=== PATIENT | male | born 1995 | race Caucasian/White ===

== ENCOUNTER → 2016-10-04 | Outpatient (CLI) | payer OTHER ==
--- NOTE | 2016-10-04 15:11 | REP ---
TRIPLE PHASE BONE SCAN OF THE ANKLES AND FEET. Following the intravenous administration of 21.9 millicuries technetium 99m MDP, the patient's ankles and feet are imaged in the flow phase in the anterior and posterior projections. There is slightly increased blood flow to the region of the right ankle and foot. Immediate blood pool and two-hour delayed images are performed of the ankles and feet in the anterior, posterior, both lateral and plantar projections. There is mild diffuse increased blood pooling in the right ankle and foot region. Delayed images show symmetrical uptake in the bones of the ankles and feet bilaterally. No asymmetric activity is seen in any of the osseous structures. There is no evidence of stress fracture scintigraphically. IMPRESSION: No scintigraphic evidence of stress fracture in the ankles or feet. Symmetrical delayed osseous uptake bilaterally. Signed by Trent Chavis MD 10/04/2016 03:25 P
== END ==
LOC: M RAD 10:18
PROVIDERS: ATTEND Nurse Practitioner Family
DX: G57.72 Causalgia of left lower limb (principal); G62.9 Polyneuropathy, unspecified; M79.605 Pain in left leg

== ENCOUNTER → 2017-02-11 | Outpatient (CLI) | payer OTHER ==
--- NOTE | 2017-02-12 11:53 | SLEEPCENT ---
DATE OF PROCEDURE: 02/11/2017 REFERRING PHYSICIAN: Eric Mosquera INTERPRETATION: Nocturnal polysomnography was performed for evaluation of sleep physiology in this patient with significant difficulties with nonrestorative sleep, morning headaches. 7 hours and 34 minutes of data were reviewed. There were 442 minutes of sleep identified. Sleep latency was very short at 30 seconds. Rapid eye movement (REM) latency was delayed at 338 minutes. Sleep architecture showed poor progression with some fragmentation. There were two REM periods appreciated late in the study. Overall sleep efficiency was 98% but there was a significant reduction in REM time. EEG showed some coarsening in background, possible medication effect. No focal events were identified. EKG showed a sinus rhythm with respiratory variability. Average heart rate 60 beats per minute. Rate range 50 to 80 beats per minute. There were 112 respiratory events identified of 10 seconds in duration or greater for an apnea hypopnea index of 15.2. The events were purely obstructive and not exclusive to sleep stage. The entire study was performed in the supine posture. There was significant snoring as well and oxygen desaturations were seen to 91%. There was some limb activity but arousals from limb events were few. The remaining measures of sleep physiology were normal. IMPRESSION: Moderate obstructive sleep apnea syndrome (G47.33). Apnea hypopnea index 15.2. RECOMMENDATION: The patient should be encouraged to return to the sleep disorder center for pressure therapy. In the interim alcohol and sedative avoidance should be practiced and caution exercised during operation of motor vehicles. Pending response to pressure therapy, close clinical followup is recommended given the very short sleep onset interval.
== END ==
LOC: M SLEEP 21:10
PROVIDERS: ATTEND Nurse Practitioner Adult Health
DX: G47.33 Obstructive sleep apnea (adult) (pediatric) (principal)

== ENCOUNTER → 2017-03-26 | Outpatient (CLI) | payer OTHER ==
--- NOTE | 2017-03-28 12:36 | SLEEPCENT ---
DATE OF STUDY: 03/26/2017 ORDERING PROVIDER: ANGELINE Ramirez Nocturnal polysomnography was performed for the titration of pressure therapy in this patient with obstructive sleep apnea syndrome, apnea-hypopnea index of 15.2. For testing, the patient was fit with a [employer]Med Quattro full face mask of medium size. 4 cm of water pressure were applied to the circuit, and the lights were extinguished. 8 hours and 3 minutes of data were reviewed. There were 454 minutes of sleep identified. Sleep latency was very short at 0.5 minutes. Rapid eye movement (REM) latency was also short at 62 minutes. Sleep architecture was good with five REM periods appreciated. Overall sleep efficiency was 95%. The patient's electrocardiogram (EKG) showed a sinus rhythm with an average heart rate of 58 beats per minute. Electroencephalogram (EEG) showed normal waveforms for awake and sleep. Respiratory events were fully palliated with continuous positive airway pressure (CPAP) at a pressure of +7. There was some persistence of limb activity, particularly early in the study. Limb movement arousals, however, occurred only 4.5 times per hour. IMPRESSION: Obstructive sleep apnea syndrome (G47.33). RECOMMENDATION: Nightly use of pressure therapy 7 cm of water.
== END ==
LOC: M SLEEP 19:44
PROVIDERS: ATTEND Nurse Practitioner Adult Health
DX: G47.33 Obstructive sleep apnea (adult) (pediatric) (principal)